=== PATIENT | female | born 2005 | race Caucasian/White ===

== ENCOUNTER 2024-03-25 19:18 | Emergency (ER) | payer SELFPAY ==
[~2024-03-25] VITALS: Ht 172.7 cm; Wt 68.2 kg
[2024-03-25 19:23] VITALS: TEMP 97.4
[2024-03-25] MEDS ORDERED: Ondansetron 4 MG/2 ML VIAL IV ONE (19:45)
[2024-03-25] MEDS ORDERED: LORazepam 2 MG/ML 1 ML VIAL IV ONE ×2 (19:45→21:45)
[2024-03-25] MEDS ORDERED: NS 1,000 ML IV ONE (19:45)
[2024-03-25 20:18] LABS: BASO % 0.4 % (0.0-2.0); EOS % 0.2 % (0.0-4.0); GRAN # 6.2 K/mm3 (1.4-6.5); HEMATOCRIT 40.9 % (35.0-45.0); HEMOGLOBIN 13.1 g/dl (12.0-15.0); LYMPH # 1.6 K/mm3 (1.2-3.4); LYMPH % 19.3 % (20.0-51.0); MEAN CELL VOLUME 76 fl (80.0-95.0); MEAN CORPUSCULAR HEMOGLOBIN 24 pg (26-32); MEAN CORPUSCULAR HGB CONC 32 g/dl (33.0-37.0); MEAN PLATELET VOLUME 9.2 fl (7.4-10.4); MONO # 0.5 K/mm3 (0.1-0.6); MONO % 5.7 % (1.7-9.3); PLATELET COUNT 394 K/mm3 (130-400); RED BLOOD COUNT 5.39 M/mm3 (4.10-5.30); REDCELL DISTRIBUTION WIDTH-CV 16.3 % (11.5-14.5)
[2024-03-25 20:31] LABS: ALBUMIN 4.7 g/dL (3.5-5.0); BILIRUBIN,TOTAL 0.5 mg/dL (0.2-1.2); CALCIUM 10.3 mg/dL (8.4-10.2); CREATININE, serum 0.89 mg/dL (0.57-1.11); POTASSIUM 3.1 mEq/L (3.5-4.5); TOTAL PROTEIN 8.3 g/dl (6.2-8.1)
[2024-03-25 21:14] LABS: URINE APPEARANCE CLEAR (CLEAR/HAZY); URINE BLOOD 2+ (NEGATIVE); URINE COLOR YELLOW (YELLOW); URINE GLUCOSE NEGATIVE (NEGATIVE); URINE KETONE 2+ (NEGATIVE); URINE NITRATE NEGATIVE (NEGATIVE); URINE PROTEIN(semi-quant) NEGATIVE (NEGATIVE); URINE UROBILINOGEN 0.2 E.U/dL (0.2-1.0)
[2024-03-25 21:20] LABS: COLLECTION METHOD CLEAN CATCH
[2024-03-25] MEDS ORDERED: Home Promethazine 25 MG #2 TAB/PACK PO ONE (23:00)
[2024-03-25 23:23] VITALS: BP 113/59; PULSE 76
== END 2024-03-25 23:23 | disposition home or self-care (01) ==
LOC: COL.ER 19:18
PROVIDERS: Nurse Practitioner
DX: E87.6 Hypokalemia (principal); F41.9 Anxiety disorder, unspecified
CPT/HCPCS: J2060; J2405; J7030